=== PATIENT | female | born 1945 | race Caucasian/White ===

== ENCOUNTER → 2020-06-26 00:36 | Outpatient (CLI) | payer MEDICARE, SELFPAY ==
[2020-06-26 18:42] LABS: SARS-CoV-2 RNA PCR Negative
== END ==
PROVIDERS: PCP Physician Assistant; Visit Provider Internal Medicine Gastroenterology
DX: Z01.812 Encounter for preprocedural laboratory examination (principal); Z20.822 Contact with and (suspected) exposure to COVID-19
CPT/HCPCS: C9803; U0003; U0005

== ENCOUNTER 2020-06-29 01:40 | Day surgery (SDC) | payer MEDICARE, SELFPAY ==
[2020-06-17 15:39] VITALS: BMI 27.0
[2020-06-29 06:24] VITALS: BMI 26.7
[2020-06-29] MEDS: LACTATED RINGERS 1,000 ML 150 ML IV CONT (06:50)
--- NOTE | 2020-06-29 07:20 | WPDANESEPPF ---
Anes - Initial Pre Proc Eval Procedure: Operation Date: 06/29/20 07:30 Proposed Procedures p Colonoscopy - Zen Nance MD Date/Time: 06/29/20 07:20 Surgeon: Zen Nance MD Pre Op Diagnosis: positive cologuard Patient Data Age: 75 Gender: F Height: 5 ft 6 in Weight: 75.1 kg Allergies Allergy/AdvReac Type Severity Reaction Status Date / Time Penicillins Allergy Unknown Hives Verified 06/29/20 06:21 Sulfa (Sulfonamide Allergy Unknown Hives Verified 06/29/20 06:21 Antibiotics) azithromycin Allergy Other Verified 06/29/20 06:21 [From Zithromax Z-Tani] Home Medications Medication Instructions Recorded Confirmed Type sod picosulf 10 mg-magnes 3.5 160 ml PO BID #160 ml 06/04/20 Rx gram-citric 12 gram/160 mL oral solution amitriptyline 25 mg PO DAILY 06/17/20 06/19/20 History latanoprost 0.005 drp OPHTHALMIC (EYE) DAILY 06/17/20 06/19/20 History mecobal-levomefolat Ca-B6 phos 1 tablet PO BID 06/17/20 06/17/20 History [Metanx] ctsezcmv-dkjpzemfn-txjhujtu ml PO 06/19/20 History [Gaviscon] azelastine-fluticasone [Dymista] 1 spray INTRANASAL HS 06/19/20 06/19/20 History cholecalciferol (vitamin D3) 1 unit PO DAILY 06/19/20 06/19/20 History [Vitamin D3] coenzyme Q10 [CoQ-10] 200 mg PO DAILY 06/19/20 06/19/20 History famotidine 20 mg PO BID 06/19/20 06/19/20 History lysine 1,000 mg PO BID 06/19/20 06/19/20 History melatonin 0.5 mg PO HS 06/19/20 06/19/20 History awjdengfsjmw-eqdf-obtlk acid 1 tablet PO DAILY 06/19/20 06/19/20 History [Centrum Women] omega 7-efm-mma-fish oil [Fish Oil] 1 cap PO DAILY 06/19/20 06/19/20 History tryptophan [L-Tryptophan] 500 mg PO HS 06/19/20 06/19/20 History Patient hx anesthesia problems: none Family hx anesthesia problems: none [facility] Past Medical History Medical History (Updated 06/29/20 @ 07:20 by Alvarado Lewis MD) Anxiety Family History Family History (Updated 10/12/15 @ 10:43 by DOCTOR UNKNOWN) Other Family history of Parkinson's disease Family history of bipolar disorder Family history of obesity Social History Social History Smoking status: Former smoker Smoking end date: 02/20/75 Alcohol intake: current Drinks per week: 7 Living arrangements: with family Gender identity (if verbalized by the patient): Female Spiritual care concerns: No Anes - Eval Final PreProcedure Day of Procedure 06/29/20 07:20 Patient weight: normal Heart: regular rate and rhythm Lungs: clear to auscultation Airway: Mallampati scale class II Neurological: alert and oriented Last oral intake: >/= 8 hours ASA classification: II Emergent: no Anesthetic plan: proceed Anesthesia type and monitoring: general GIVS and standard monitoring Informed Consent: The patient's anesthetic plan and its attendant risks and benefits were discussed with the patient/family/POA. Questions were solicited and answers provided to the satisfaction of the patient/family/POA.
--- NOTE | 2020-06-29 07:26 | WPDGICN ---
Assessment and Plan Assessment and plan (1) Positive colorectal cancer screening using Cologuard test: Code(s): R19.5 - Other fecal abnormalities Status: Acute Assessment and Plan: Patient feels good. cologuard screening test was positive. Plan to proceed with colonoscopy to evaluate more thoroughly. Further recommendations will be given after endoscopy. GI Consult Note Consult date/time: 06/29/20 07:26 HPI: Melissa Hammond is a 75 year old female Presents for screening colonoscopy. She recently was found to have a positive cologuard screening test. her last colonoscopy was 10 years ago. Her current weight appetite bowel movements are normal. She denies abdominal pain. She has had no bleeding. Her family history is noncontributory. She presents today for colonoscopy. Review of Systems Review of Systems: All systems reviewed & are unremarkable except as noted in HPI and below PMFSH Past Medical History Medical History (Updated 06/29/20 @ 07:28 by Zen Nance MD) Anxiety Family History Family History (Updated 10/12/15 @ 10:43 by DOCTOR UNKNOWN) Other Family history of Parkinson's disease Family history of bipolar disorder Family history of obesity Social History Social History Smoking status: Former smoker Smoking end date: 02/20/75 Alcohol intake: current Drinks per week: 7 Living arrangements: with family Gender identity (if verbalized by the patient): Female Spiritual care concerns: No Meds Home Medications and Allergies Home Medications Medication Instructions Recorded Confirmed Type sod picosulf 10 mg-magnes 3.5 160 ml PO BID #160 ml 06/04/20 Rx gram-citric 12 gram/160 mL oral solution amitriptyline 25 mg PO DAILY 06/17/20 06/19/20 History latanoprost 0.005 drp OPHTHALMIC (EYE) DAILY 06/17/20 06/19/20 History mecobal-levomefolat Ca-B6 phos 1 tablet PO BID 06/17/20 06/17/20 History [Metanx] mltcwmwu-rvyvgmebo-malbdaiq ml PO 06/19/20 History [Gaviscon] azelastine-fluticasone [Dymista] 1 spray INTRANASAL HS 06/19/20 06/19/20 History cholecalciferol (vitamin D3) 1 unit PO DAILY 06/19/20 06/19/20 History [Vitamin D3] coenzyme Q10 [CoQ-10] 200 mg PO DAILY 06/19/20 06/19/20 History famotidine 20 mg PO BID 06/19/20 06/19/20 History lysine 1,000 mg PO BID 06/19/20 06/19/20 History melatonin 0.5 mg PO HS 06/19/20 06/19/20 History nucaynkssgsq-mzmj-thtri acid 1 tablet PO DAILY 06/19/20 06/19/20 History [Centrum Women] omega 8-xtd-uwv-fish oil [Fish Oil] 1 cap PO DAILY 06/19/20 06/19/20 History tryptophan [L-Tryptophan] 500 mg PO HS 06/19/20 06/19/20 History Allergies Allergy/AdvReac Type Severity Reaction Status Date / Time Penicillins Allergy Unknown Hives Verified 06/29/20 06:21 Sulfa (Sulfonamide Allergy Unknown Hives Verified 06/29/20 06:21 Antibiotics) azithromycin Allergy Other Verified 06/29/20 06:21 [From Zithromax Z-Tani] Exam Narrative: Exam Narrative: Physical exam reveals patient be alert. Vital signs stable. HEENT exam unremarkable. Lungs are clear to auscultation and percussion. Heart is without murmur or extra sounds. Abdominal exam bowel sounds are present soft nontender with no hepatosplenomegaly. Digital external rectal exam is normal.
[2020-06-29 07:58] VITALS: BP 116/61; PULSE 78; RESP 24; O2SAT 97
[2020-06-29 08:08] VITALS: BP 114/65; PULSE 73; RESP 18; O2SAT 97
[2020-06-29 08:28] VITALS: BP 128/75; PULSE 67; RESP 20; O2SAT 99
== END 2020-06-29 08:37 | disposition home or self-care (01) ==
PROVIDERS: PCP Physician Assistant; Visit Provider Internal Medicine Gastroenterology
PROC: 0DJD8ZZ Inspection of Lower Intestinal Tract, Via Natural or Artificial Opening Endoscopic (ICD-10-PCS; CPT 45378; principal; 2020-06-29 07:30)
DX: Z12.11 Encounter for screening for malignant neoplasm of colon (principal); R19.5 Other fecal abnormalities; K64.8 Other hemorrhoids; F41.9 Anxiety disorder, unspecified; Z87.891 Personal history of nicotine dependence
CPT/HCPCS: G0121; C9803; J2704; J7120; U0003; U0005